=== PATIENT | female | born 2005 | race Caucasian/White ===

== ENCOUNTER 2024-07-12 09:58 | Emergency (ER) | payer OTHER ==
[~2024-07-12] VITALS: Ht 162.6 cm; Wt 80.0 kg
[2024-07-12 10:00] VITALS: BP 113/70; PULSE 88; RESP 18; TEMP 36.8; O2SAT 98
[2024-07-12 12:08] LABS: CLARITY URINE CLEAR (CLEAR); COLOR URINE YELLOW (YELLOW); GLUCOSE URINE NEGATIVE (NEGATIVE); KETONES URINE TRACE (NEGATIVE); LEUKOCYTE ESTERASE URINE NEGATIVE (NEGATIVE); NITRITE URINE NEGATIVE (NEGATIVE); OCCULT BLOOD URINE NEGATIVE (NEGATIVE); PH URINE 6.5 (4.5-8.0); PROTEIN URINE TRACE (NEGATIVE); SPECIFIC GRAVITY URINE 1.033 (1.005-1.030)
[2024-07-12] MEDS: KETOROLAC 30MG/ML VIAL IM STA (12:17)
[2024-07-12] MEDS: HYDROCODONE/ACETAMINOPHEN 5/325MG TABLET PO STA (12:22)
[2024-07-12 12:48] LABS: RBC URINE 0-2 /hpf (0-2); SQUAMOUS EPITHELIAL CELL URINE 2+ /lpf (RARE/1+); WBC URINE 0-2 /hpf (0-2)
[2024-07-12 12:49] LABS: BACTERIA URINE TRACE; YEAST URINE NONE SEEN
[2024-07-12] MEDS ORDERED: NAPR-681 PO (13:18)
[2024-07-12] MEDS ORDERED: GABA-1180 PO (13:18)
== END 2024-07-12 13:38 | disposition home or self-care (01) ==
LOC: ER 09:58
DX: M54.50 Low back pain, unspecified (principal)
CPT/HCPCS: 81003; 81025; 96372; 99283; J1885; Z7610

== ENCOUNTER 2024-09-16 13:01 | Emergency (ER) | payer MEDICAID, OTHER ==
[~2024-09-16] VITALS: Ht 157.5 cm; Wt 78.0 kg
[~2024-09-16 13:01] MED LIST: GABA-1180 PO; NAPR-681 PO
[2024-09-16 13:14] VITALS: O2SAT 99
[2024-09-16 14:56] LABS: BASOPHILS % 0.4 % (0.0-2.0); EOSINOPHILS % 0.4 % (0.0-5.0); HEMATOCRIT. 40.8 % (36.0-48.0); HEMOGLOBIN. 13.9 g/dL (12.0-16.0); LYMPHOCYTES % 18.5 % (20.0-50.0); MEAN PLATELET VOLUME 9.4 fl (7.4-10.4); MONOCYTES % 3.8 % (2.0-8.0); NEUTROPHILS % 76.9 % (40.0-76.0); PLATELET 213 x1000/uL (130-400); RED BLOOD CELL COUNT 4.66 mill/uL (4.2-5.4); RED CELL DISTRIBUTION WIDTH 13.0 % (11.6-14.6)
[2024-09-16 15:18] LABS: CREATININE 0.6 mg/dL (0.6-1.0); UREA NITROGEN BLOOD 8 mg/dL (9-23)
[2024-09-16 15:20] LABS: ASPARTATE AMINOTRANSFERASE 13 IU/L (<34); BILIRUBIN TOTAL 0.5 mg/dL (0.1-1.0); PROTEIN TOTAL 6.8 g/dL (6.0-8.3)
[2024-09-16 15:35] LABS: B-HCG QUANTITATIVE 56264 mIU/mL (<6)
[2024-09-16] MEDS: ACETAMINOPHEN 325MG TABLET PO ONE (16:41)
[2024-09-16] MEDS ORDERED: ACET-2708 MT (18:31)
[2024-09-16 18:44] VITALS: BP 112/70; PULSE 90; RESP 16; TEMP 36.7; O2SAT 99
== END 2024-09-16 18:45 | disposition home or self-care (01) ==
LOC: ER 13:01
DX: O9A.211 Injury, poisoning and certain other consequences of external causes complicating pregnancy, first trimester (principal); S09.8XXA Other specified injuries of head, initial encounter; Z3A.13 13 weeks gestation of pregnancy; Z79.899 Other long term (current) drug therapy; W01.190A Fall on same level from slipping, tripping and stumbling with subsequent striking against furniture, initial encounter; Y93.01 Activity, walking, marching and hiking; Y92.89 Other specified places as the place of occurrence of the external cause; Y99.8 Other external cause status
CPT/HCPCS: 80053; 84702; 85025; 86850; 86900; 86901; 36415; 70450; 76801; 76817; 99284; Z7610

== ENCOUNTER 2024-11-08 13:59 | Emergency (ER) | payer MEDICAID ==
[~2024-11-08] VITALS: Ht 167.6 cm; Wt 75.0 kg
[~2024-11-08 13:59] MED LIST changes: +ACET-2708 MT
[2024-11-08 14:07] VITALS: O2SAT 100
[2024-11-08] MEDS: SODIUM CHLORIDE 0.9% 1,000 ML IV ONE (14:45)
[2024-11-08 15:10] LABS: ETHANOL BLOOD < 10 mg/dL (<10)
[2024-11-08 15:11] LABS: CREATININE 0.7 mg/dL (0.6-1.0); UREA NITROGEN BLOOD 9 mg/dL (9-23)
[2024-11-08 15:13] LABS: ASPARTATE AMINOTRANSFERASE 10 IU/L (<34); BASOPHILS % 0.3 % (0.0-2.0); BILIRUBIN DIRECT < 0.1 mg/dL (<=3.0); BILIRUBIN TOTAL 0.3 mg/dL (0.1-1.0); EOSINOPHILS % 0.4 % (0.0-5.0); HEMATOCRIT. 37.2 % (36.0-48.0); HEMOGLOBIN. 12.8 g/dL (12.0-16.0); LYMPHOCYTES % 15.5 % (20.0-50.0); MEAN PLATELET VOLUME 9.9 fl (7.4-10.4); MONOCYTES % 5.5 % (2.0-8.0); NEUTROPHILS % 78.3 % (40.0-76.0); PLATELET 186 x1000/uL (130-400); PROTEIN TOTAL 6.5 g/dL (6.0-8.3); RED BLOOD CELL COUNT 4.24 mill/uL (4.2-5.4); RED CELL DISTRIBUTION WIDTH 13.0 % (11.6-14.6)
[2024-11-08 15:20] LABS: INR 1.0
[2024-11-08 15:25] LABS: B-HCG QUANTITATIVE 12814 mIU/mL (<6)
[2024-11-08 15:30] LABS: HCG SCREEN POSITIVE
[2024-11-08 15:37] LABS: CLARITY URINE CLOUDY (CLEAR); COLOR URINE YELLOW (YELLOW); GLUCOSE URINE NEGATIVE (NEGATIVE); KETONES URINE TRACE (NEGATIVE); LEUKOCYTE ESTERASE URINE 2+ (NEGATIVE); NITRITE URINE NEGATIVE (NEGATIVE); OCCULT BLOOD URINE 1+ (NEGATIVE); PH URINE 6.0 (4.5-8.0); PROTEIN URINE 2+ (NEGATIVE); SPECIFIC GRAVITY URINE 1.020 (1.005-1.030); UROBILINOGEN URINE 1.0 E.U./dL (0.2-1.0)
[2024-11-08 15:48] LABS: BACTERIA URINE 3+; SQUAMOUS EPITHELIAL CELL URINE FEW /lpf (RARE/1+)
[2024-11-08 15:51] LABS: *AMPHETAMINES SCREEN URINE NEGATIVE (NEGATIVE); *BARBITURATES SCREEN URINE NEGATIVE (NEGATIVE); *BENZODIAZEPINES SCREEN URINE NEGATIVE (NEGATIVE); *COCAINE SCREEN URINE NEGATIVE (NEGATIVE); METHADONE URINE SCREEN NEGATIVE (NEGATIVE); OPIATES URINE SCREEN NEGATIVE (NEGATIVE); PHENCYCLIDINE URINE SCREEN NEGATIVE (NEGATIVE)
[2024-11-08 15:52] LABS: CANNABINOID URINE SCREEN NEGATIVE (NEGATIVE); ECSTASY MDMA SCREEN URINE NEGATIVE (NEGATIVE)
[2024-11-08 15:53] VITALS: BP 104/58; PULSE 97; RESP 15; TEMP 36.7; O2SAT 99
== END 2024-11-08 16:01 | disposition left against medical advice (07) ==
LOC: ER 13:59 → CMPBEDREQ 19:02
DX: O20.0 Threatened abortion (principal); Z79.899 Other long term (current) drug therapy; Z3A.21 21 weeks gestation of pregnancy
CPT/HCPCS: 86695; 86696; 87491; 87591; 80076; 80305; 80048; 81003; 81025; 80320; 84703; 84702; 83735; 85025; 85610; 85730; 86850; 86900; 86901; 36415; 76805; 76817; 96360; 99291; J7030; G0480